=== PATIENT | female | born 1925 | race Caucasian/White ===

== ENCOUNTER → 2016-10-04 | Outpatient (CLI) | payer MEDICARE ==
[2016-10-04] MEDS: IOHEXOL 300 MG/ML 75 ML VIAL. IV ONE (13:04)
--- NOTE | 2016-10-04 13:38 | RAD ---
Indication chest pain on off for a month. Axial images through the chest were obtained. 75 cc of Omnipaque 300 was administered. Examination was tailored for the detection of pulmonary emboli. MIP images were generated and reviewed. No prior CT imaging of the chest is available. There is a 1.5 cm mass medially in the left breast, at approximately the 9:00 position suspect for primary malignancy. Mammography and targeted ultrasound are advised. There is a question of a lingual thyroid. Imaging through the upper abdomen is unremarkable. The thoracic aorta appears unremarkable. There is no significant hilar or mediastinal adenopathy. The study is negative for pulmonary embolus. There are substantial degenerative changes in the thoracic spine. A dominant soft tissue mass in either lung is not seen. Acute finding in the chest is not apparent. IMPRESSION: No acute finding seen in the chest. 1.5 cm mass at approximately the 9:00 position of the left breast suspect for primary malignancy Negative study for pulmonary embolus PQRS Compliance Statement: One or more of the following individualized dose reduction techniques were utilized for this examination: 1. Automated exposure control 2. Adjustment of the mA and/or kV according to patient size 3. Use of iterative reconstruction technique
== END | disposition home or self-care (01) ==
LOC: CT 12:40
PROVIDERS: ATTEND Family Medicine
DX: R07.89 Other chest pain (principal)
CPT/HCPCS: 71275; Q9967

== ENCOUNTER 2016-10-29 09:14 | Inpatient (IN) | payer MEDICARE ==
[~2016-10-29] VITALS: Ht 160 cm; Wt 74.5 kg
--- NOTE | 2016-10-29 09:41 | ED.ADGEN ---
Past History Past Medical History: Diabetes, Hypertension Past Surgical History: Appendectomy Smoking: Non-smoker Alcohol Use: None Drug Use: None Adult General Chief Complaint Chief Complaint weakness HPI HPI Patient is a 89 year old female who presents with "weakness all over" upon waking this morning. She noted it when she couldn't tie her shoe using her RUE. She reports she had noted weakness in her RUE since Friday when she couldn 't hold a coffee cup, and numbness of her fingertips left hand earlier in the week. No slurred speech, no difficulty with ambulation. She had R arm pain earlier in the week as well. No vision changes, h/o previous stroke 3-4 years ago, denies daily aspirin or other blood thinners. no SOB/abd pain/headache. PCP is Dr. Pierce Review of Systems Review of Systems Constitutional: Denies fever or chills [] Eyes: Denies change in visual acuity, redness, or eye pain [] HENT: Denies nasal congestion or sore throat [] Respiratory: Denies cough or shortness of breath [] Cardiovascular: denies chest pain GI: Denies abdominal pain, nausea, vomiting, bloody stools or diarrhea [] : Denies dysuria or hematuria [] Musculoskeletal: Denies back pain or joint pain [] Integument: Denies rash or skin lesions [] Neurologic: per hpi Current Medications Current Medications Current Medications Medications (Trade) Dose Ordered Sig/Aleksandr Start Time Stop Time Status Last Admin Dose Admin Acetaminophen (Tylenol) 650 mg PRN Q4HRS PRN 10/29/16 10:45 10/30/16 10:44 UNV Aspirin (Kevin Aspirin) 325 mg 1X ONCE 10/29/16 10:00 10/29/16 10:14 DC 10/29/16 09:55 325 MG Allergies Allergies Allergies Coded Allergies Type Severity Reaction Last Updated Verified Penicillins Allergy Unknown 02/25/14 No Physical Exam Physical Exam Constitutional: Well developed, well nourished, no acute distress, non-toxic appearance. elderly HENT: Normocephalic, atraumatic, bilateral external ears normal, oropharynx moist, no oral exudates, nose normal. [] Eyes: PERRLA, EOMI, conjunctiva normal, no discharge. [] Neck: Normal range of motion, no tenderness, supple, no stridor. [] Cardiovascular:Heart rate regular with regular rhythm, no murmur [] Lungs & Thorax: Bilateral breath sounds clear to auscultation, no wheeze, crackles or rhonchi Abdomen: Bowel sounds normal, soft, no tenderness, no masses, no pulsatile masses. [] Skin: Warm, dry, no erythema, no rash. [] Back: No tenderness, no CVA tenderness. [] Extremities: RUE unable to fully extend at elbow, likely 2/2 to previous contractures, pt is unsure if this is new. Neurologic: Alert and oriented to self and place, thinks is 2004, fingers in neutral flexed position, unable to fully extend any fingers, unable to dorsal flex at the wrist, sensory intact, 4-/5 hand regional wildlife agent with LUE hand regional wildlife agent 5/5. normal strength in bicep/tri bilateral, normal strength in bilater hip flexors, CN II-XII intact. Psychologic: Affect normal, judgement normal, mood normal. [] Current Patient Data Lab Results Laboratory Tests Test 10/29/16 09:48 10/29/16 10:05 White Blood Count 6.4x10^3/uL (4.0-11.0) Red Blood Count 4.06x10^6/uL (3.50-5.40) Hemoglobin 12.7g/dL (12.0-15.5) Hematocrit 37.3% (36.0-47.0) Mean Corpuscular Volume 92fL (79-100) Mean Corpuscular Hemoglobin 31pg (25-35) Mean Corpuscular Hemoglobin Concent 34g/dL (31-37) Red Cell Distribution Width 13.1% (11.5-14.5) Platelet Count 235x10^3/uL (140-400) Neutrophils (%) (Auto) 73% (31-73) Lymphocytes (%) (Auto) 14% (24-48) L Monocytes (%) (Auto) 8% (0-9) Eosinophils (%) (Auto) 4% (0-3) H Basophils (%) (Auto) 1% (0-3) Neutrophils # (Auto) 4.7x10^3uL (1.8-7.7) Lymphocytes # (Auto) 0.9x10^3/uL (1.0-4.8) L Monocytes # (Auto) 0.5x10^3/uL (0.0-1.1) Eosinophils # (Auto) 0.2x10^3/uL (0.0-0.7) Basophils # (Auto) 0.0x10^3/uL (0.0-0.2) Sodium Level 136mmol/L (136-145) Potassium Level 3.8mmol/L (3.5-5.1) Chloride Level 99mmol/L (98-107) Carbon Dioxide Level 28mmol/L (21-32) Anion Gap 9 (6-14) Blood Urea Nitrogen 15mg/dL (7-20) Creatinine 0.9mg/dL (0.6-1.0) Estimated GFR (Cockcroft-Gault) 59.0 Glucose Level 207mg/dL (70-99) H Calcium Level 9.0mg/dL (8.5-10.1) Creatine Kinase 38U/L (26-192) Creatine Kinase MB (Mass) 1.1ng/mL (0.0-3.6) Creatine Kinase MB Relative Index 2.9% (0-4) Troponin I Quantitative < 0.017ng/mL (0-0.055) Urine Collection Type U cath Urine Color Straw Urine Clarity Clear Urine pH 6.5 Urine Specific [place] <=1.005 Urine Protein Neg (NEG-TRACE) Urine Glucose (UA) Negmg/dL (NEG) Urine Ketones (Stick) Negmg/dL (NEG) Urine Blood Neg (NEG) Urine Nitrite Neg (NEG) Urine Bilirubin Neg (NEG) Urine Urobilinogen Dipstick 0.2mg/dL (0.2 mg/dL) Urine Leukocyte Esterase Neg (NEG) Urine RBC 0/HPF (0-2) Urine WBC 0/HPF (0-4) Urine Squamous Epithelial Cells Occ/LPF Urine Renal Epithelial Cells Occ/LPF Urine Bacteria 0/HPF (0-FEW) EKG EKG 62 bpm, sinus, normal axis, right bundle-branch block with QRS of 134, no ST elevation or depression, biphasic T-wave in lead V3 and V4, interpreted by me [] Radiology/Procedures Radiology/Procedures []cxr Exam: AP portable chest. History: Weakness. Comparison: 02/25/2014. Findings: The heart and mediastinal structures are within normal limits for size. Lungs are without infiltrate. No pneumothorax or pleural effusion is appreciated. Mild bilateral shoulder degeneration is seen. 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 Impression: 1. No acute cardiopulmonary process. ct HEAD: CT of the head without contrast, 10/29/2016: History: Weakness. Comparison is made to a study from 04/11/2011. There is mild cerebral and cerebellar atrophy. There are mild patchy lucencies in the deep white matter bilaterally compatible with chronic ischemic change. The ventricles are within normal limits in size. There is no shift of the midline structures. There is no evidence of acute intracranial hemorrhage or mass effect. There is calcific plaquing of the distal internal carotid and vertebral arteries. IMPRESSION: 1. Chronic findings as described above. 2. No acute intracranial abnormality is detected. Note: The findings were called to personnel in the [facility] ER at 9:40 AM on 10/29/2016. Course & Med Decision Making Course & Med Decision Making Pertinent Labs and Imaging studies reviewed. (See chart for details) CT head no acute findings. Pt given 1 aspirin. Pt out of window for tPa. No other acute findings. Spoke with Dr. Pierce, accepted pt to inpt stay. Dr. Murphy consult placed. Final Impression Final Impression Acute CVA - possible, with R hand weakness Weakness[] Problems: Dragon Disclaimer Dragon Disclaimer This electronic medical record was generated, in whole or in part, using a voice recognition dictation system. CRISS DESOUZA MD Oct 29, 2016 09:41
--- NOTE | 2016-10-29 09:45 | RAD ---
CT of the head without contrast, 10/29/2016: History: Weakness. Comparison is made to a study from 04/11/2011. There is mild cerebral and cerebellar atrophy. There are mild patchy lucencies in the deep white matter bilaterally compatible with chronic ischemic change. The ventricles are within normal limits in size. There is no shift of the midline structures. There is no evidence of acute intracranial hemorrhage or mass effect. There is calcific plaquing of the distal internal carotid and vertebral arteries. IMPRESSION: 1. Chronic findings as described above. 2. No acute intracranial abnormality is detected. Note: The findings were called to personnel in the [facility] ER at 9:40 AM on 10/29/2016. PQRS Compliance Statement: One or more of the following individualized dose reduction techniques were utilized for this examination: 1. Automated exposure control 2. Adjustment of the mA and/or kV according to patient size 3. Use of iterative reconstruction technique
--- NOTE | 2016-10-29 09:46 | EKG ---
[address] [address] Test Date: 2016-10-29 Test Time: 09:44:30 Pat Name: MARCIN LE Department: Room: Gender: F [place] [employer] Supervisor: PATRICIA : [id number] Requested By: CRISS DESOUZA Order Number: [id number] Reading MD: Morgan Villar Measurements Intervals [place] Rate: 62 P: -39 PA: 178 QRS: -9 QRSD: 134 T: 4 QT: 436 QTc: 445 Interpretive Statements SINUS RHYTHM LEFTWARD AXIS RIGHT BUNDLE BRANCH BLOCK Electronically Signed On 11-04-2016 9:34:14 CDT by Morgan Villar
--- NOTE | 2016-10-29 09:52 | RAD ---
Exam: AP portable chest. History: Weakness. Comparison: 02/25/2014. Findings: The heart and mediastinal structures are within normal limits for size. Lungs are without infiltrate. No pneumothorax or pleural effusion is appreciated. Mild bilateral shoulder degeneration is seen. 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 Impression: 1. No acute cardiopulmonary process.
[2016-10-29] MEDS ORDERED: ASPIRIN 325 MG TABLET PO ONE (10:00)
[2016-10-29 10:06] LABS: BASO % 1 % (0-3); EOS # 0.2 x10^3/uL (0.0-0.7); EOS % 4 % (0-3); HEMATOCRIT 37.3 % (36.0-47.0); HEMOGLOBIN 12.7 g/dL (12.0-15.5); LYMPH # 0.9 x10^3/uL (1.0-4.8); LYMPH % 14 % (24-48); MEAN CORPUSCULAR HEMOGLOBIN 31 pg (25-35); MEAN CORPUSCULAR HGB CONC 34 g/dL (31-37); MEAN CORPUSCULAR VOLUME 92 fL (79-100); MONO # 0.5 x10^3/uL (0.0-1.1); MONO % 8 % (0-9); NEUT # 4.7 x10^3uL (1.8-7.7); NEUT % 73 % (31-73); PLATELET COUNT 235 x10^3/uL (140-400); RED BLOOD COUNT 4.06 x10^6/uL (3.50-5.40); RED CELL DISTRIBUTION WIDTH 13.1 % (11.5-14.5); WHITE BLOOD COUNT 6.4 x10^3/uL (4.0-11.0)
[2016-10-29 10:28] LABS: CREATININE 0.9 mg/dL (0.6-1.0); POTASSIUM 3.8 mmol/L (3.5-5.1)
[2016-10-29 10:31] LABS: BILIRUBIN,URINE NEG (NEG); CLARITY,URINE CLEAR; COLOR,URINE STRAW; GLUCOSE,URINE NEG (NEG)
[2016-10-29 10:32] LABS: BACTERIA,URINE 0 /HPF (0-FEW); NITRITE,URINE NEG (NEG); RBC,URINE 0 /HPF (0-2); SQUAMOUS EPITHELIAL CELL,UR OCC /LPF; UROBILINOGEN,URINE 0.2 mg/dL (0.2 mg/dL); WBC,URINE 0 /HPF (0-4)
[2016-10-29] MEDS ORDERED: ACETAMINOPHEN 325 MG TABLET PO PRN (10:45)
[2016-10-29 13:54] VITALS: BP 170/83
[2016-10-29] MEDS ORDERED: METO25TA4 PO (14:17)
[2016-10-29] MEDS ORDERED: ATOR10TA60 PO (14:17)
[2016-10-29] MEDS ORDERED: METF10002 PO (14:17)
[2016-10-29] MEDS ORDERED: GLYB5TAB3 PO (14:17)
[2016-10-29] MEDS ORDERED: OMEP20CA9 PO (14:17)
[2016-10-29] MEDS: glyBURIDE 5 MG TABLET PO SCH (18:24)
[2016-10-29 20:06] VITALS: BP 135/89
[2016-10-29] MEDS: METOPROLOL TART IMMED RELEASE 25 MG TABLET PO SCH (20:11)
[2016-10-29] MEDS ORDERED: ATORVASTATIN CALCIUM 10 MG TABLET. PO SCH (21:00)
[2016-10-29] MEDS ORDERED: methylPREDNISolone 4 MG TABLET. PO SCH (21:00)
[2016-10-30] VITALS (7 sets, daily range): BP systolic 149–199; BP diastolic 77–97
[2016-10-30] MEDS ORDERED: cloNIDine HCL 0.1 MG TABLET PO ONE (01:15)
[2016-10-30] MEDS: hydrALAZINE 10 MG TABLET PO SCH ×3 (01:34→12:17)
[2016-10-30 06:21] LABS: HEMATOCRIT 36.9 % (36.0-47.0); HEMOGLOBIN 12.4 g/dL (12.0-15.5); RED BLOOD COUNT 4.03 x10^6/uL (3.50-5.40); WHITE BLOOD COUNT 5.5 x10^3/uL (4.0-11.0)
[2016-10-30 06:33] LABS: CALCIUM 8.8 mg/dL (8.5-10.1); CREATININE 0.9 mg/dL (0.6-1.0); POTASSIUM 4.1 mmol/L (3.5-5.1)
[2016-10-30] MEDS ORDERED: metFORMIN 500 MG TABLET PO SCH (08:00)
[2016-10-30] MEDS ORDERED: ASPIRIN 81 MG TAB.CHEW PO SCH (08:00)
[2016-10-30] MEDS: glyBURIDE 5 MG TABLET PO SCH (08:33)
[2016-10-30] MEDS: METOPROLOL TART IMMED RELEASE 25 MG TABLET PO SCH (08:33)
[2016-10-30] MEDS ORDERED: methylPREDNISolone 4 MG TABLET. PO SCH ×2 (09:00→12:30)
[2016-10-30] MEDS ORDERED: PNEUMOC CONJ VACC 23-VALENT 0.5 ML VIAL. VAX IM ONE (09:00)
[2016-10-30] MEDS ORDERED: PANTOPRAZOLE 40 MG TABLET. PO SCH (09:00)
[2016-10-30] MEDS ORDERED: HYDR-2867 PO (11:49)
[2016-10-30] MEDS ORDERED: METH4TAB6 PO (11:49)
[2016-10-30] MEDS ORDERED: Aspirin PO (11:49)
--- NOTE | 2016-10-30 12:18 | HP ---
ADMIT DATE: 10/29/2016 HISTORY OF PRESENT ILLNESS: The patient is a pleasant 89-year-old female came in through the Emergency Room. Apparently, she just felt some weakness all over mostly in her right upper extremity. The patient states she could not hold a cup and got numbness in her fingers as well. She denied any problems with her speech. She had pain in the arm and has had previous stroke 3-4 years ago. The patient does not take any blood thinners. She denied chest pain, shortness of breath, or headaches. She was seen as noted in the Emergency Room and then admitted for observation for possible TIA or stroke in evolution. I will request neurology consult by neurologist, Dr. Murphy. PAST MEDICAL HISTORY: Includes that of a stroke, hypertension, joint replacements, degenerative arthritis, and diabetes. MEDICATIONS: Include methylprednisolone 4 mg daily, Protonix 40, aspirin 81, metformin 1000 b.i.d., hydralazine 10 mg 3 times a day, metoprolol 25 mg daily, Lipitor 10 mg, and glyburide 10 mg. ALLERGIES: PENICILLIN. FAMILY HISTORY: Noncontributory. SOCIAL HISTORY: The patient denies smoking, alcohol, or drug use. Lives at home. REVIEW OF SYSTEMS: As noted outside of her weakness primarily in the right upper extremity and right hand. The patient denies any headaches, visual change, blurred vision, or double vision. Denies any chest pain or shortness of breath. Denies any abdominal pain. Denies any melena, hematochezia, and hematemesis. Negative for nausea and vomiting. PHYSICAL EXAMINATION: GENERAL: On exam, she is a very pleasant white female looking younger than stated age. VITAL SIGNS: Initially, her blood pressure was approximately as high as almost 200/90, pulse in the 60s, she is afebrile, and oxygen saturation 95%. HEENT: The patient's head was atraumatic and normocephalic. Eyes, PERRLA without jaundice. Mouth and throat were normal. NECK: Supple without JVD, carotid bruits, or thyromegaly. LUNGS: Clear to auscultation. CARDIOVASCULAR: Regular sinus rhythm. S1 and S2. 1/6 systolic ejection murmur. ABDOMEN: Soft and nontender. No rebound or guarding. Positive bowel sounds. No hepatosplenomegaly noted. EXTREMITIES: No clubbing, cyanosis, or edema. NEUROLOGIC: The patient was alert and oriented x 3. The patient otherwise cranial nerves 2-12 grossly intact. Muscle strength is somewhat diminished in the right hand and right arm probably from pain. The patient otherwise normal sensory in the lower extremities and strength. Gait appears to be basically normal there. The patient was admitted and monitored carefully. LABORATORY DATA: Her CBC and chemistries are basically unchanged and her blood sugars running over 200 to 300 being on the methylprednisolone. Blood sugars are being monitored. Urine was unremarkable. CT unremarkable; however, had no acute findings. Chest x-ray was negative. IMPRESSION: Radiculopathy of the right arm with weakness in the right arm and decreased sec accountant, history of hypertension, and history of diabetes. The patient did well and received physical and occupational therapy. Discharged in diabetic diet. Decreased activity and no driving and have her return to follow up with Dr. Murphy here in 2 weeks or sooner as needed. CARLITOS NUGENT MD DR: ELI/vianca JOB#: [id number] / [id number]
--- NOTE | 2016-10-30 13:25 | ACF ---
Admission Criteria Forms [facility] Telemetry Admission Guidelines (Place 'X' for any and all applicable criteria): Admission to telemetry [A] may be indicated for ANY ONE of the following(1)(2)(3 )(4)(5): [ ]I. Cardiac disease, including ANY ONE of the following (9)(10)(11)(12)(13 ): [ ]a) Postacute PA [ ]b) Low-risk patients with ST-segment elevation PA who have undergone successful percutaneous coronary intervention [ ]c) Unstable angina [ ]d) Suspected PA (until it is ruled out) [ ]e) Post cardiac surgery (first 48 to 72 hours unless complications occur) [ ]f) Acute arrhythmias (including significant tachycardia or bradycardia) [B] [ ]g) Firing of an implantable cardioverter defibrillator [C] [ ]h) Suspected pacemaker or implantable cardioverter defibrillator malfunction (10) [ ]i) New administration or adjustment of an antiarrhythmic drug [D ] [ ]j) Child admitted for acute congestive heart failure [ ]j) Long QT syndrome [ ]k) Advanced heart block (eg, second-degree Mobitz type II, third- degree heart block) [ ]l) Acute myocarditis or pericarditis [ ]m) Short-term (ambulatory or inpatient) monitoring after a cardiac procedure as indicated by ANY ONE of the following [E]: [ ]i) Electrophysiologic studies [ ]ii) Percutaneous coronary intervention with stent placement [ ]iii) Pacemaker placement with cardiac conduction defect [ ]iv) Implantable cardiac defibrillator placement [ ]II. Drug overdose or poisoning with substance that causes arrhythmias or QT prolongation (eg, phenothiazines, sympathomimetic agents, cyclic antidepressants, digitalis, antiarrhythmic drugs)(15) [ ]III. Short-term (ambulatory or inpatient) monitoring after therapeutic or diagnostic procedure requiring conscious sedation or anesthesia (eg, endoscopy, elective cardioversion) [X]IV. Acute cerebrovascular even[F](18) [ ]V. Massive blood transfusion (eg, at least 10 units of packed red blood cells in 24 hours) [ ]. Variceal bleeding after endoscopy, sclerotherapy, or IV vasopressin [ ]VII. Uncorrected electrolyte abnormalities associated with an increased risk of dangerous arrhythmia [G]; examples include [ ]a) Hyperkalemia with attributable ECG changes [ ]b) Potassium greater than 6.5 mmol/L (mEq/L) in a patient without history of chronic renal disease [ ]c) Prolonged QT attributed to hypokalemia, hypomagnesemia, or hypocalcemia [ ]VIII.Unexplained syncope or other neurologic event suspected of being due to arrhythmia due to a finding that increases risk; examples include(19)(20)(21): [ ]a) High-risk ECG findings (eg, bifascicular block, bradycardia, abnormal QT interval, ventricular pre- excitation) [ ]b) History of previous syncope due to arrhythmia [ ]c) Abnormal ventricular function (eg, reduced ejection fraction ) [ ]d) Exertional or supine syncope [ ]e) Concerning syncope characteristics (eg, sudden loss of consciousness without prodrome) [ ]f) Family history of sudden [ ]g) Use of arrhythmogenic medication [ ]h) Suspected cardiac ischemia [ ]i) Known channelopathy (eg, long QT syndrome, Brugada syndrome, or catecholaminergic paroxysmal ventricular tachycardia) [ ]j) Known structural heart disease (eg, hypertrophic cardiomyopathy , severe valvular disease) [ ]k) Palpitations preceding syncope The original [employer] content created by [employer] has been revised. The portions of the content which have been revised are identified through the use of italic text or in bold, and [email or web address] has neither reviewed nor approved the modified material. All other unmodified content is copyright [employer]. Please see references footnoted in the original [employer] edition 2015 Admission Criteria Met?: Yes ACOSTA NOVAK Oct 30, 2016 13:25
--- NOTE | 2016-10-30 21:11 | CONS ---
DATE OF CONSULTATION: 10/29/2016 Neurology Consultation REFERRING PHYSICIAN: Marko Pierce MD REASON FOR CONSULTATION: Weakness of the right arm and hand and numbness of the left arm and hand. HISTORY OF PRESENT ILLNESS: This is an 89-year-old very pleasant female who was admitted through Emergency Room on account of new onset of severe weakness of the right hand. The patient has had intermittent pain, numbness and paresthesia of the right upper and lower extremities for several days. She also complains of numbness and paresthesia of the left hand. She denies any recent fall or injuries; however, she stated that the day before admission, she slept on her right side. When she woke up this morning, she found she has marked weakness of the right hand. She was unable to write using her right hand. She denies neck pain or recent neck injuries or fall. PAST MEDICAL HISTORY: Significant for hypertension, diabetes mellitus, total knee replacement, history of stroke 4 years ago without significant neurological residuals. PAST SURGICAL HISTORY: Significant for appendectomy. SOCIAL HISTORY: The patient lives independently. She denies alcohol drinking or illicit drug use. REVIEW OF SYSTEMS: A 10-point review of system was performed and as mentioned above in history of present illness. PHYSICAL EXAMINATION: GENERAL: Well-developed, well-nourished white female, not in acute distress. VITAL SIGNS: Blood pressure 135/89, respiratory rate 18, oxygen saturation 93% on room air and pulse is 66 and regular. HEENT: Normocephalic, atraumatic, otherwise unremarkable. NECK: Supple. Negative for carotid bruit, lymphadenopathy or thyromegaly. LUNGS: Clear to A and P. CARDIOVASCULAR: Regular rate and rhythm, normal S1, S2. ABDOMEN: Soft. Bowel sounds positive. EXTREMITIES: Negative for cyanosis, clubbing, or pitting edema. NEUROLOGIC: 1. Mental Status: The patient is alert and oriented x 2. The speech is fluent. There is no language dysfunction. Judgment and abstract thinking are fair. The patient denies hallucination or delusion. The patient recalls 2/3 immediately and 1/3 after 1 and 3 minutes. Judgment and abstract thinking are fair. The patient denies hallucination or delusion. 2. Cranial Nerves: Visual devlin are full. The pupils are reactive to light and accommodation. The extraocular movements are intact. There is no nystagmus. There is no facial motor or sensory deficit. Hearing is intact bilaterally. The palate is elevated symmetrically. Sternocleidomastoid muscles are powerful bilaterally. The patient shrugs her shoulders symmetrically and protrudes her tongue in the midline without fasciculation or atrophy. 3. Motor: No focal muscle bulk was seen. The tone was normal. The strength was 3/5 in the distal right upper extremity with right wrist drop, marked weakness of the all abductors of the right hand. The strength also was 5/5 throughout. Sensory examination revealed diminished pinprick and light touch senses in patchy distributions in the right hand. Deep tendon reflexes were symmetric and hypoactive without pathologic responses. Gait: The stance is steady. The patient walks few steps in the room without assistance. LABORATORY DATA: CBC revealed white blood cells of 6400, hemoglobin 12.7, hematocrit 37.3 and platelet count 235,000. Chemistry revealed sodium of 136, potassium 3.8, chloride 99, CO2 of 29, BUN 15, creatinine 0.9 and calcium is 9. Cardiac enzymes are normal. Troponin level is normal, less than 0.017. DIAGNOSTIC DATA: Head CT scan performed today revealed chronic small vessel ischemic changes without acute intracranium. IMPRESSION: 1. Acute onset of right wrist drop probably due to external pressure on the radial groove above the right elbow. 2. Multiple medical problems include diabetes mellitus, hypertension and possible early dementia. RECOMMENDATIONS: 1. Treat underlying right wrist drop with a right wrist brace or woody board to keep the wrist in neutral position. 2. We will start patient on Medrol Dosepak and watch her blood sugar and glucose closely. 3. Physical therapy. 4. Dementia workup. M Andrew IVEY MD DR: DINO/vianca JOB#: [id number] / [id number]
[2016-10-31] MEDS ORDERED: methylPREDNISolone 4 MG TABLET. PO SCH ×2 (08:30→21:00)
[2016-11-01] MEDS ORDERED: methylPREDNISolone 4 MG TABLET. PO SCH (09:00)
[2016-11-02] MEDS ORDERED: methylPREDNISolone 4 MG TABLET. PO SCH (09:00)
[2016-11-03] MEDS ORDERED: methylPREDNISolone 4 MG TABLET. PO SCH (09:00)
[2016-11-04] MEDS ORDERED: methylPREDNISolone 4 MG TABLET. PO SCH (09:00)
== END 2016-10-30 13:08 | disposition home or self-care (01) | DRG 74 ==
LOC: ER 09:14 → ICU 13:05
PROVIDERS: ADMIT Family Medicine; ATTEND Family Medicine
DX: M54.10 Radiculopathy, site unspecified (principal); M19.90 Unspecified osteoarthritis, unspecified site; E11.9 Type 2 diabetes mellitus without complications; I10 Essential (primary) hypertension; M21.331 Wrist drop, right wrist; R20.0 Anesthesia of skin; Z96.659 Presence of unspecified artificial knee joint; Z90.49 Acquired absence of other specified parts of digestive tract; Z88.0 Allergy status to penicillin
CPT/HCPCS: 36415; 51701; 70450; 71010; 80048; 80061; 81001; 82553; 82947; 84484; 85027; 87641; 90732; 93005; J7509; 99285-25

== ENCOUNTER → 2016-11-08 | Outpatient (CLI) | payer MEDICARE ==
[2016-10-30 12:17] VITALS: BP 170/97
[~2016-11-08] MED LIST: ATOR10TA60 PO; Aspirin PO; GLYB5TAB3 PO; HYDR-2867 PO; METF10002 PO; METH4TAB6 PO; METO25TA4 PO; OMEP20CA9 PO
--- NOTE | 2016-11-08 11:34 | RAD ---
DATE: 11/08/2016 EXAM: MAMMO ROBBIN DIAG BILAT HISTORY: Recent CT suggesting primary neoplasm in the left breast COMPARISON: None This study was interpreted with the benefit of Computerized Aided Detection (CAD). FINDINGS: The breast parenchyma shows scattered fibroglandular densities. Breast parenchyma level B. There is a spiculated 2 cm mass at approximately the 7-8 o'clock position of the left breast compatible with the finding on the recent CT. No additional finding is seen in the left breast. The right breast appears unremarkable. Benign-appearing calcifications are noted in both breasts. Targeted ultrasound of the left breast was performed. Examination was targeted to the spiculated mass at the 7-8 o'clock position. Compatible with the mammographic finding is a solid 1.5 cm shadowing vascular mass compatible with primary malignancy. IMPRESSION: 2 cm spiculated mass at approximately the 7-8 o'clock position of the left breast most compatible with primary malignancy. BI-RADS CATEGORY: 5 HIGHLY SUGGESTIVE MALIGNANCY RECOMMENDED FOLLOW-UP: BIO BIOPSY RECOMMENDED PQRS compliance statement: Patient information was entered into a reminder system with a target due date soon for the next mammogram. Mammography is a sensitive method for finding small breast cancers, but it does not detect them all and is not a substitute for careful clinical examination. A negative mammogram does not negate a clinically suspicious finding and should not result in delay in biopsying a clinically suspicious abnormality. "Our facility is accredited by the [employer] Mammography Program."
== END | disposition home or self-care (01) ==
LOC: MAMMO 09:37
PROVIDERS: ATTEND Family Medicine
DX: R92.8 Other abnormal and inconclusive findings on diagnostic imaging of breast (principal)
CPT/HCPCS: 76641; G0204; G0279; 77062; 77066

== ENCOUNTER 2017-01-23 13:06 | Emergency (ER) | payer MEDICARE ==
[~2017-01-23] VITALS: Ht 160 cm; Wt 72.6 kg
--- NOTE | 2017-01-23 15:00 | RAD ---
EXAM: Left elbow 3 views. HISTORY: Fall with left elbow pain. COMPARISON: None. FINDINGS: There is a prominent ring of osteophytes around the radial. This limits evaluation for mildly nondisplaced radial neck fracture. There is a large joint effusion, raising concern for nondisplaced fracture, though this may also be secondary to diffuse moderate to severe tricompartmental osteoarthritis. Alignment is maintained. IMPRESSION: 1. 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 2. Findings concerning for a nondisplaced fracture of the radial neck, though sensitivity is low in the setting of bulky osteophytosis. Correlate clinically. Follow-up could be performed in 2 weeks there is persistent concern.
--- NOTE | 2017-01-23 15:29 | PHYS DOC ---
Past History Past Medical History: Cancer, CVA, Diabetes, Hypertension Past Surgical History: Appendectomy, Tonsillectomy Smoking: Non-smoker Alcohol Use: None Drug Use: None Adult General Chief Complaint Chief Complaint: MECHANICAL FALL HPI HPI Patient is a 89 year old F who presents with elbow pain. 2 nights ago when getting up to go to the restroom she had a fall. After which her left elbow had moderate constant dull pain that was worse with movement and palpation. She did not have radiating pain. No numbness or tingling. No other associated symptoms Review of Systems Review of Systems Constitutional: Denies fever or chills [] Eyes: Denies change in visual acuity, redness, or eye pain [] HENT: Denies nasal congestion or sore throat [] Respiratory: Denies cough or shortness of breath [] Cardiovascular: No additional information not addressed in HPI [] GI: Denies abdominal pain, nausea, vomiting, bloody stools or diarrhea [] : Denies dysuria or hematuria [] Musculoskeletal: Negative except history of present illness Integument: Denies rash or skin lesions [] Neurologic: Denies headache, focal weakness or sensory changes [] Endocrine: Denies polyuria or polydipsia [] Family History Family History Noncontributory Current Medications Current Medications Current Medications Medications (Trade) Dose Ordered Sig/Aleksandr Start Time Stop Time Status Last Admin Dose Admin Acetaminophen/ Hydrocodone Bitart (Lortab 5/325) 1 tab 1X ONCE 01/23/17 15:15 01/23/17 15:16 UNV Allergies Allergies Allergies Coded Allergies Type Severity Reaction Last Updated Verified Penicillins Allergy Intermediate 10/30/16 No Physical Exam Physical Exam Constitutional: Well developed, well nourished, no acute distress, non-toxic appearance. [] HENT: Normocephalic, atraumatic, bilateral external ears normal, oropharynx moist, no oral exudates, nose normal. [] Eyes: PERRLA, EOMI, conjunctiva normal, no discharge. [] Neck: Normal range of motion, no tenderness, supple, no stridor. [] Cardiovascular:Heart rate regular rhythm, Lungs & Thorax: Bilateral breath sounds clear to auscultation [] Abdomen: Bowel sounds normal, soft, no tenderness, no masses, no pulsatile masses. [] Skin: Warm, dry, no erythema, no rash. [] Left breast surgical incision - no signs of infection central eschar was noted Extremities: Mild swelling over the left elbow normal range of motion however pain was noted. Tenderness to palpation on the lateral aspect of the left elbow Neurologic: Alert and oriented X 3, normal motor function, normal sensory function, no focal deficits noted. [] Psychologic: Affect normal, judgement normal, mood normal. [] Current Patient Data Vital Signs Vital Signs Date Time Temp Pulse Resp B/P (MAP) Pulse Ox O2 Delivery O2 Flow Rate FiO2 01/23/17 13:06 97.7 75 20 96 Room Air Radiology/Procedures Radiology/Procedures Left elbow x-ray Impressions: Likely radial head fracture, nondisplaced Course & Med Decision Making Course & Med Decision Making Pertinent Labs and Imaging studies reviewed. (See chart for details) Rekha was advised to follow-up with her surgeon for further evaluation and management of her surgical incision. She was offered a splint and opted for shoulder immobilization Dragon Disclaimer Dragon Disclaimer This chart was dictated in whole or in part using Voice Recognition software in a busy, high-work load, and often noisy Emergency Department environment. It may contain unintended and wholly unrecognized errors or omissions. Departure Departure: Impression: Primary Impression: Radial head fracture, closed Disposition: 01 HOME, SELF-CARE Condition: STABLE Referrals: CARLITOS NUGENT MD (PCP) Patient Instructions: Elbow Fracture, Radial Head with Rehab-SportsMed Additional Instructions: Alicia was seen in the ED for elbow pain. No emergency medical condition was found during the history and physical exam. She did have an xray that showed a radial head fracture, or an elbow fracture. She was placed in an immobilizer and given a script for pain medications. She was also advised to use lidocaine patches for pain. She was advised to follow up with orthopedics in the next 7- 10 days for further management Problem Qualifiers Primary Impression: Radial head fracture, closed Encounter type: initial encounter Fracture alignment: nondisplaced Laterality: left Qualified Codes: S52.125A - Nondisplaced fracture of head of left radius, initial encounter for closed fracture CARLITOS HANKS MD Jan 23, 2017 15:29
[2017-01-23] MEDS ORDERED: HYDROcodone/APAP 5/325MG 1 TAB TABLET PO ONE (15:45)
[2017-01-23 15:50] VITALS: BP 178/90
== END 2017-01-23 15:50 | disposition home or self-care (01) ==
LOC: ER 13:06
DX: S52.125A Nondisplaced fracture of head of left radius, initial encounter for closed fracture (principal); E11.9 Type 2 diabetes mellitus without complications; I10 Essential (primary) hypertension; Z86.73 Personal history of transient ischemic attack (TIA), and cerebral infarction without residual deficits; Z88.0 Allergy status to penicillin; W19.XXXA Unspecified fall, initial encounter; Y93.89 Activity, other specified; Y99.8 Other external cause status; Y92.89 Other specified places as the place of occurrence of the external cause
CPT/HCPCS: 29105; 29505; 73080; 99284-25